=== PATIENT | female | born 1940 | race Caucasian/White ===

== ENCOUNTER 2018-09-02 15:27 | Emergency (ER) | payer OTHER ==
[~2018-09-02] VITALS: Ht 170.2 cm; Wt 63.5 kg
[2018-09-02 15:27] VITALS: BP 131/68
[~2018-09-02 15:27] MED LIST: FURO-145 PO; SPIR25TA PO
--- NOTE | 2018-09-02 16:18 | NUR ---
Patient discharged to home in stable condition. Written and verbal after care instructions given. Patient verbalizes understanding of instruction.
== END 2018-09-02 16:18 | disposition home or self-care (01) ==
LOC: ER 15:35
DX: Z48.01 Encounter for change or removal of surgical wound dressing (principal); C44.91 Basal cell carcinoma of skin, unspecified; K74.60 Unspecified cirrhosis of liver; Z86.19 Personal history of other infectious and parasitic diseases; Z85.22 Personal history of malignant neoplasm of nasal cavities, middle ear, and accessory sinuses; Z88.6 Allergy status to analgesic agent; Z88.5 Allergy status to narcotic agent
CPT/HCPCS: 99281; A4606; Z7502; Z7610